=== PATIENT | male | born 1970 | race African-American/Black ===

== ENCOUNTER 2022-08-06 16:20 | Emergency (ER) | payer BC ==
[~2022-08-06] VITALS: Ht 175.3 cm; Wt 105.0 kg
[2022-08-06] MEDS ORDERED: NITROGLYCERIN 0.4MG TABLET SL SL PRN (16:45)
[2022-08-06] MEDS ORDERED: ASPIRIN 81MG TABLET PO ONE ×2 (16:45→21:30)
[2022-08-06 17:23] LABS: BASOPHILS % 0.3 % (0.0-2.0); EOSINOPHILS % 1.2 % (0.0-5.0); HEMATOCRIT. 42.5 % (42.0-52.0); HEMOGLOBIN. 14.5 g/dL (14.0-18.0); LYMPHOCYTES % 51.1 % (20.0-50.0); MEAN CORPUSCULAR HEMOGLOBIN 29.5 pg (28.0-32.0); MEAN CORPUSCULAR VOLUME 86.3 fL (80.0-94.0); MEAN PLATELET VOLUME 7.8 fl (7.4-10.4); MONOCYTES % 6.4 % (2.0-8.0); PLATELET 224 x1000/uL (130-400); RED BLOOD CELL COUNT 4.92 mill/uL (4.7-6.1); RED CELL DISTRIBUTION WIDTH 14.6 % (11.6-14.6)
[2022-08-06 17:29] LABS: CHLORIDE 108 mEq/L (98-107)
[2022-08-06 17:30] VITALS: BP 120/80
[2022-08-06] MEDS ORDERED: MAGNESIUM/ALUMINUM HYDROXIDE/SIMETHICONE 30ML UDC PO PRN (21:30)
[2022-08-06] MEDS ORDERED: IPRATROPIUM/ALBUTEROL 0.5-3(2.5)MG/3ML NEB HHN PRN (21:30)
[2022-08-06] MEDS ORDERED: ACETAMINOPHEN 650MG SUPP PR PRN (21:30)
[2022-08-06] MEDS ORDERED: ONDANSETRON HCL 4MG/2ML INJ IV PRN (21:30)
[2022-08-06] MEDS ORDERED: CLONIDINE 0.1MG TABLET PO PRN (21:30)
[2022-08-06] MEDS ORDERED: MORPHINE SULFATE 2 MG/ML CPJ (NOT FOR IM USE) IV PRN (21:30)
[2022-08-06] MEDS ORDERED: ACETAMINOPHEN 325MG TABLET PO PRN (21:30)
[2022-08-06] MEDS ORDERED: LISINOPRIL 2.5MG TABLET PO SCH (21:30)
[2022-08-06] MEDS ORDERED: ENOXAPARIN 30MG/0.3ML SYR SUBCUT SCH (21:48)
[2022-08-06 22:11] LABS: CREATINE KINASE MB FRACTION 6.7 ng/mL (0.5-3.6)
[2022-08-06 22:40] LABS: VITAMIN B12 SERUM 788 pg/mL (211-911)
[2022-08-07] MEDS ORDERED: FAMOTIDINE 20MG TABLET PO SCH (09:00)
[2022-08-07] MEDS ORDERED: ASPIRIN 81MG EC TABLET PO SCH (09:00)
[2022-08-07] MEDS ORDERED: ATORVASTATIN CALCIUM 40MG TABLET PO SCH (21:00)
== END 2022-08-06 22:08 | disposition home or self-care (01) ==
LOC: ER 16:20
DX: R07.9 Chest pain, unspecified (principal); K21.9 Gastro-esophageal reflux disease without esophagitis
CPT/HCPCS: 36415; 71045; 80053; 80061; 82553; 82607; 82746; 83036; 83880; 84484; 85025; 85379; 93005; 99285; Z7610